=== PATIENT | male | born 1955 | race Caucasian/White ===

== ENCOUNTER 2018-09-16 11:39 | Outpatient (CLI) | payer MEDICARE ==
[2018-09-16] VITALS (21 sets, daily range): BP systolic 120–152; BP diastolic 74–98
== END 2018-09-16 23:59 | disposition home or self-care (01) ==
LOC: CARD DIAG 11:39
PROVIDERS: ATTEND Internal Medicine Cardiovascular Disease
DX: I10 Essential (primary) hypertension (principal); Z87.891 Personal history of nicotine dependence
CPT/HCPCS: 93660

== ENCOUNTER 2018-10-14 05:55 | Day surgery (SDC) | payer MEDICARE ==
[2018-10-13 17:12] LABS: BASOPHILS % (AUTO) 0.4 % (0-1); EOSINOPHILS # (AUTO) 0.2 X10'3 (0-0.9); EOSINOPHILS % (AUTO) 2.2 % (0-6); HEMATOCRIT 45.9 % (42.0-52.0); HEMOGLOBIN 15.7 g/dl (14.0-17.9); LYMPHOCYTES # (AUTO) 0.7 X10'3 (1.1-4.8); LYMPHOCYTES % (AUTO) 8.5 % (21-51); MEAN CORPUSCULAR HEMOGLOBIN 29.8 PG (27.0-31.0); MEAN CORPUSCULAR HGB CONC 34.2 g/dL (33.0-36.5); MEAN CORPUSCULAR VOLUME 87.2 FL (78-98); MEAN PLATELET VOLUME 8.3 FL (7.4-10.4); MONOCYTES # (AUTO) 0.7 X10'3 (0-0.9); MONOCYTES % (AUTO) 8.1 % (2-12); NEUTROPHILS # (AUTO) 7.1 X10'3 (1.8-7.7); NEUTROPHILS % (AUTO) 80.8 % (42-75); PLATELET COUNT 200 X10'3 (140-440); RED BLOOD COUNT 5.27 X10'6 (4.70-6.10); RED CELL DISTRIBUTION WIDTH 14.9 % (11.5-14.5); WHITE BLOOD COUNT 8.8 X10'3 (4.5-11.0)
[2018-10-13 17:18] LABS: ALBUMIN 3.9 G/DL (3.4-5.0); ANION GAP 9 (8-16); BLOOD UREA NITROGEN 21 MG/DL (7-18); BUN/CREATININE RATIO 21.2 (5.4-32.0); CALCIUM 9.7 MG/DL (8.5-10.1); CHLORIDE 107 MMOL/L (99-107); CREATININE 0.99 MG/DL (0.60-1.10); GLUCOSE 109 MG/DL (70-104); POTASSIUM 3.9 MMOL/L (3.5-5.1); SODIUM 139 MMOL/L (135-145); TOTAL CARBON DIOXIDE 22.9 MMOL/L (24-32); eGFR 76 ML/MIN
[2018-10-13 17:22] LABS: PARTIAL THROMBOPLASTIN TIME 27 SECONDS (22-32)
[2018-10-14] VITALS (12 sets, daily range): BP systolic 101–161; BP diastolic 59–81
[~2018-10-14] VITALS: Ht 182.9 cm; Wt 117.3 kg
[2018-10-14] MEDS ORDERED: diphenhydrAMINE 25mg capsule PO PRN (06:10)
[2018-10-14] MEDS ORDERED: acetylcysteine 200 MG/ml 4ml vial PO PRN (06:10)
[2018-10-14] MEDS ORDERED: normal saline 1,000 ML IV SCH (06:10)
[2018-10-14] MEDS ORDERED: APIX5TAB3 PO (07:15)
[2018-10-14] MEDS ORDERED: MELA1TAB9 PO (07:15)
[2018-10-14] MEDS ORDERED: METO50TA17 PO (07:15)
[2018-10-14] MEDS ORDERED: GLU850T PO (07:15)
[2018-10-14] MEDS ORDERED: BENA40TA73 PO (07:15)
[2018-10-14] MEDS ORDERED: IBUP-2264 PO (07:16)
[2018-10-14] MEDS ORDERED: fentaNYL/PF 50MCG/1 ML 2ML syringe ONE (07:42)
[2018-10-14] MEDS ORDERED: midazolam 2 mg/2 ml injection ONE (07:42)
[2018-10-14] MEDS ORDERED: verapamil 2.5 mg/ml inj IV ONE (07:42)
[2018-10-14] MEDS ORDERED: LIDOcaine 1% (10mg/ml)w/preservative injection 20ml MDV ONE (07:43)
[2018-10-14] MEDS ORDERED: iohexol 350MG/ML 100ml bottle IV ONE (07:43)
[2018-10-14] MEDS ORDERED: iohexol 350 MG/ML 50ML vial IV ONE (07:43)
[2018-10-14] MEDS ORDERED: heparin 1,000unit/ml 10ml vial 10 ML ONE (07:43)
[2018-10-14] MEDS ORDERED: nitroGLYCERIN-Tridil 50MG/D5W 250 ML IV ONE (07:43)
[2018-10-14 10:51] LABS: ISTAT Hct MIX 38 %PCV (42-52); ISTAT O2 SATURATION MIX VENOUS 69 % (60-80); ISTAT SOURCE MIX
[2018-10-14 10:51] LABS: ISTAT HGB ART 12.9 g/dl (14.0-18.0); ISTAT Hct ART 38 %PCV (42-52); ISTAT O2 SATURATION ARTERIAL 97 % (95-98); ISTAT SOURCE ART
== END 2018-10-14 15:00 | disposition home or self-care (01) ==
LOC: SSTAY O 05:55
PROVIDERS: ATTEND Internal Medicine Cardiovascular Disease
DX: I25.10 Atherosclerotic heart disease of native coronary artery without angina pectoris (principal); E11.9 Type 2 diabetes mellitus without complications; I10 Essential (primary) hypertension; E78.5 Hyperlipidemia, unspecified; G47.30 Sleep apnea, unspecified; I48.91 Unspecified atrial fibrillation; Z79.899 Other long term (current) drug therapy; Z87.891 Personal history of nicotine dependence
CPT/HCPCS: 36415; 80048; 82803; 85014; 85025; 85610; 85730; 93005; 93460; 99152; 99153; A6257; J1644; J2001; J2250; J3010; J7030; Q0163; Q9967; C1760; C1769; J3490